=== PATIENT | male | born 1960 | race American Indian/Alaskan Native ===

== ENCOUNTER 2017-05-16 14:29 | Emergency (ER) | payer BC ==
[2017-05-16 14:30] VITALS: BMI 31.5
[2017-05-16] MEDS ORDERED: Aspirin 325 mg EC Tablets PO STA (14:59)
[2017-05-16 15:15] LABS: BASO % 0.5 % (0.0-2.0); EOS # 0.1 K/uL (0.0-0.7); EOS % 2.3 % (0.0-4.0); HEMATOCRIT 44.9 % (35.0-51.0); LYMPH # 2.2 K/uL (1.0-4.3); LYMPH % 49.5 % (20.0-40.0); MEAN CELL VOLUME 89.1 fL (80.0-94.0); MEAN CORPUSCULAR HEMOGLOBIN 30.4 pg (27.0-31.0); MEAN CORPUSCULAR HGB CONC 34.1 g/dL (33.0-37.0); MEAN PLATELET VOLUME 7.7 fL (7.2-11.7); MONO # 0.4 K/uL (0.0-0.8); MONO % 9.5 % (0.0-10.0); NRBC % 0.1 % (0.0-2.0); WHITE BLOOD COUNT 4.4 K/uL (4.8-10.8)
[2017-05-16 15:23] LABS: CHLORIDE 103 mmol/L (98-107); POTASSIUM 3.4 mmol/L (3.6-5.2); SODIUM 142 mmol/L (132-148)
[2017-05-16 15:25] LABS: BILIRUBIN,TOTAL 0.6 mg/dL (0.2-1.3); GFR AFRICAN-AMERICAN > 60
[2017-05-16 15:26] LABS: ALB/GLOB RATIO 1.3 (1.0-2.1); ALKALINE PHOSPHATASE 97 U/L (38-126); ALT/SGPT 37 U/L (21-72); AST/SGOT 31 U/L (17-59); BLOOD UREA NITROGEN 10 mg/dL (9-20); CARBON DIOXIDE 28 mmol/L (22-30); GLUCOSE,RANDOM 106 mg/dL (75-110); TOTAL PROTEIN 7.7 g/dL (6.3-8.3)
[2017-05-16 15:27] LABS: CALCIUM 8.7 mg/dl (8.6-10.4)
--- NOTE | 2017-05-16 15:27 | C.PDOC ---
History Of Present Illness 56 y/o male with Hx of HTN and DM presents to ED with complaints of chest pain and headaches since yesterday. Patient reports HEART being to the right posterior scalp and behind ear along the right side of neck. Pain is rated a 8/10 and described as "tight and pulling" pain that comes and goes. Patient states chest pain began yesterday "over his heart" and feeling a pinching, sharp pain fleeting in nature. Patient denies sob, sweating, nausea or any other complaints at this time. Time Seen by Provider: 05/16/17 14:50 Chief Complaint (Nursing): Chest Pain History Per: Patient History/Exam Limitations: no limitations Onset/Duration Of Symptoms: Days Current Symptoms Are (Timing): Still Present Quality: Tightness, "Pain" Past Medical History Reviewed: Historical Data, Nursing Documentation, Vital Signs Vital Signs: Last Vital Signs Temp 98.4 F 05/16/17 14:38 Pulse 78 05/16/17 18:00 Resp 16 05/16/17 18:00 BP 146/94 H 05/16/17 18:00 Pulse Ox 100 05/16/17 18:00 - Medical History PMH: Back Problems, HTN, Migraine - [facility] Procedures ENDO RECTUM POLYPECTOMY (09/06/04) EXCISE CORD/EPID LES NEC (02/24/03) ING HERNIA REP-GRAFT NOS (02/24/03) INJECT/INFUSE NEC (11/12/04) Family History: States: No Known Family Hx - Social History Hx Alcohol Use: Yes (2 beers) Hx Substance Use: Yes - Immunization History Hx Tetanus Toxoid Vaccination: No Hx Influenza Vaccination: No Hx Pneumococcal Vaccination: No Review Of Systems Except As Marked, All Systems Reviewed And Found Negative. Constitutional: Negative for: Fever, Sweats Cardiovascular: Positive for: Chest Pain Respiratory: Negative for: Shortness of Breath Gastrointestinal: Negative for: Nausea, Vomiting, Diarrhea Musculoskeletal: Negative for: Back Pain Skin: Negative for: Rash Neurological: Positive for: Headache. Negative for: Weakness, Dizziness Physical Exam - Physical Exam Appears: Non-toxic, No Acute Distress Skin: Normal Color, Warm Head: Atraumatic, Normacephalic Eye(s): bilateral: Normal Inspection, PERRL, EOMI Oral Mucosa: Moist Neck: Normal ROM Chest: No Deformity, Other (Reproducible pain to left anterior chest wall) Cardiovascular: Rhythm Regular, No Murmur Respiratory: Normal Breath Sounds, No Rales, No Rhonchi, No Wheezing Gastrointestinal/Abdominal: Soft, No Tenderness, No Guarding, No Rebound Extremity: No Pedal Edema, Capillary Refill (<2 seconds) Neurological/Psych: Oriented x3, Normal Speech, Normal Motor, Normal Sensation, Normal Reflexes ED Course And Treatment - Laboratory Results Result Diagrams: 05/16/17 15:12 05/16/17 15:12 ECG Rhythm: Sinus Rhythm (Normal) ECG Interpretation: Normal Rate From EC (BPM) O2 Sat by Pulse Oximetry: 98 (RA) Pulse Ox Interpretation: Normal Medical Decision Making Medical Decision Making: Patient given Toradol and Cardiac Enzymes Patient will be re-evaluated Disposition Discussed With .: Faizan Woodward Doctor Will See Patient In The: Office Counseled Patient/Family Regarding: Studies Performed, Need For Followup, Rx Given - Disposition Referrals: Faizan Woodward MD [Staff Provider] - Disposition: HOME/ ROUTINE Disposition Time: 19:04 Condition: STABLE Prescriptions: diaZEpam [Valium] 5 mg PO TID #12 tab traMADol/Acetaminophen [Ultracet 37.5/325 mg] 1 tab PO TID PRN #20 tab PRN Reason: pain Instructions: Muscle Spasm (ED), Chest Wall Pain (ED) Forms: General Discharge Instructions - POA Present On Arrival: None - Clinical Impression Clinical Impression: Muscle spasm, Chest wall pain - Scribe Statement The provider has reviewed the documentation as recorded by the Dustin Thomson All medical record entries made by the Scribe were at my direction and personally dictated by me. I have reviewed the chart and agree that the record accurately reflects my personal performance of the history, physical exam, medical decision making, and the department course for this patient. I have also personally directed, reviewed, and agree with the discharge instructions and disposition.
--- NOTE | 2017-05-16 15:36 | RAD ---
PROCEDURE: CHEST RADIOGRAPH, 1 VIEW HISTORY: Chest pain COMPARISON: None available. FINDINGS: LUNGS: The lungs are well inflated and clear. PLEURA: No pneumothorax or pleural fluid seen. CARDIOVASCULAR: Normal. OSSEOUS STRUCTURES: No significant abnormalities. VISUALIZED UPPER ABDOMEN: Normal. OTHER FINDINGS: None. IMPRESSION: No active pulmonary disease.
[2017-05-16 19:00] VITALS: RESP 16
[2017-05-16 19:18] VITALS: BP 122/75; PULSE 81; TEMP 98.9; O2SAT 100
--- NOTE | 2017-05-19 21:32 | CARD ---
APPROVED REPORT EKG Measurement Heart [id number] <Conclusion> Normal sinus rhythm Nonspecific T wave abnormality Abnormal ECG
== END 2017-05-16 19:18 | disposition home or self-care (01) ==
LOC: C.ER 14:29
DX: M62.838 Other muscle spasm (principal); R07.89 Other chest pain; E11.9 Type 2 diabetes mellitus without complications; I10 Essential (primary) hypertension
CPT/HCPCS: 71010; 80053; 83880; 84484; 85025; 93005; 96374; 99285; J1885

== ENCOUNTER 2017-07-23 06:32 | Inpatient (IN) | payer BC ==
[2017-07-23 06:32] VITALS: BMI 31.5
--- NOTE | 2017-07-23 07:52 | C.PDOC ---
History Of Present Illness 56 y/o male, history of HTN and diabetes, presents with dizziness x 2 weeks. Patient describes dizziness as a spinning sensation, worse with head movement, and associated with nausea. Patient states symptoms are intermittent, relieved by rest. Patient reports he saw PMD Dr. Woodward, who started him on Meclizine, which patient states does not help. Also states he felt unstable on his feet walking to the bathroom multiple times last night, having to hold onto the ball. Denies head injury or other trauma, fever, vomiting, numbness, or motor weakness. Time Seen by Provider: 07/23/17 07:15 Chief Complaint (Nursing): Dizziness/Lightheaded History Per: Patient History/Exam Limitations: no limitations Onset/Duration Of Symptoms: Intermittent Episodes (2 weeks) Current Symptoms Are (Timing): Still Present Seizure Or Post-ictal Symptoms: None Fall Associated With With Symptoms: No Recent travel outside of the [place]: No Past Medical History Reviewed: Historical Data, Nursing Documentation, Vital Signs Vital Signs: Last Vital Signs Temp 98.3 F 07/23/17 06:37 Pulse 80 07/23/17 06:37 Resp 18 07/23/17 08:31 BP 163/92 H 07/23/17 08:31 Pulse Ox 96 07/23/17 08:20 - Medical History PMH: Back Problems, HTN, Migraine - [facility] Procedures ENDO RECTUM POLYPECTOMY (09/06/04) EXCISE CORD/EPID LES NEC (02/24/03) ING HERNIA REP-GRAFT NOS (02/24/03) INJECT/INFUSE NEC (11/12/04) Family History: States: Unknown Family Hx - Social History Hx Alcohol Use: Yes (2 beers) Hx Substance Use: No - Immunization History Hx Tetanus Toxoid Vaccination: No Hx Influenza Vaccination: No Hx Pneumococcal Vaccination: No Review Of Systems Except As Marked, All Systems Reviewed And Found Negative. Constitutional: Negative for: Fever, Chills Cardiovascular: Negative for: Chest Pain Respiratory: Negative for: Cough, Shortness of Breath Gastrointestinal: Negative for: Nausea, Vomiting, Abdominal Pain Musculoskeletal: Positive for: Back Pain. Negative for: Neck Pain Skin: Negative for: Rash Neurological: Negative for: Weakness, Numbness, Headache, Dizziness Physical Exam - Physical Exam Additional Physical Exam Comments: Constitutional: No acute distress. Head: Normocephalic. Atraumatic. Eyes: PERRL. ENT: Moist mucous membranes. Neck: Supple. Cardiovascular: Regular rate. Radial pulse 2+ bilaterally. Chest: No tenderness. Respiratory: Clear to auscultation bilaterally. GI: Soft. Nontender. Nondistended. Back: No CVA tenderness. Musculoskeletal: No tenderness or swelling of extremities. Skin: No rash. Neurologic: Alert. (+) Phillip-Hallpike manuever. Finger to nose, heel to parry normal. Cautiously steady gait, increased sway with Romberg. ED Course And Treatment - Laboratory Results Result Diagrams: 07/23/17 07:59 07/23/17 07:59 O2 Sat by Pulse Oximetry: 96 Medical Decision Making Medical Decision Making: Plan: * CT Head * EKG * CxR * Bloodwork * Reassess Progress: EKG impression: NSR 86, no ST elevations or depressions CxR IMPRESSION: No active disease. No interval pathology noted FINDINGS: HEMORRHAGE: No intracranial hemorrhage. BRAIN: No mass effect or edema. No atrophy or chronic microvascular ischemic changes. VENTRICLES: Unremarkable. No hydrocephalus. CALVARIUM: Unremarkable. PARANASAL SINUSES: Ethmoidal sinus mucosal inflammatory changes. No frontal or maxillary or sphenoid similar mucosal inflammatory changes. Some of the ethmoidal air cells are more completely opacified than others right middle segment primarily. MASTOID AIR CELLS: The mastoid air cells are well aerated without effusions. The labyrinthine structures appear grossly unremarkable no cell bowel or pontine angle gross soft tissue pathology or internal auditory canal changes suggested. No middle ear cavity soft tissue for fluid-like density here seen. OTHER FINDINGS: None. IMPRESSION: No intra hemorrhage or mass effect. No mastoid or middle ear cavity gross inflammatory changes appreciated Ethmoidal inflammatory changes as above. No other paranasal sinus significant appearing inflammatory changes suggested Dr. Woodward accepts patient to his service for intractible vertigo. Dr. Rios consulted for neurology. Disposition Discussed With : Faizan Woodward Doctor Will See Patient In The: Hospital - Disposition Disposition: HOSPITALIZED Disposition Time: 09:17 Condition: FAIR Forms: [facility] (German) - Clinical Impression Clinical Impression: Vertigo - Scribe Statement The provider has reviewed the documentation as recorded by the Dustin Shafer Provider Attestation: All medical record entries made by the Dustin were at my direction and personally dictated by me. I have reviewed the chart and agree that the record accurately reflects my personal performance of the history, physical exam, medical decision making, and the department course for this patient. I have also personally directed, reviewed, and agree with the discharge instructions and disposition.
[2017-07-23 08:04] LABS: BASO % 0.8 % (0.0-2.0); EOS # 0.1 K/uL (0.0-0.7); EOS % 1.6 % (0.0-4.0); HEMATOCRIT 45.5 % (35.0-51.0); LYMPH # 1.4 K/uL (1.0-4.3); LYMPH % 40.8 % (20.0-40.0); MEAN CELL VOLUME 88.4 fL (80.0-94.0); MEAN CORPUSCULAR HEMOGLOBIN 30.1 pg (27.0-31.0); MEAN CORPUSCULAR HGB CONC 34.1 g/dL (33.0-37.0); MEAN PLATELET VOLUME 7.5 fL (7.2-11.7); MONO # 0.3 K/uL (0.0-0.8); MONO % 10.1 % (0.0-10.0); NRBC % 0.2 % (0.0-2.0); RED CELL DISTRIBUTION WIDTH 13.4 % (11.5-14.5); WHITE BLOOD COUNT 3.4 K/uL (4.8-10.8)
--- NOTE | 2017-07-23 08:06 | RAD ---
HISTORY: vertigo COMPARISON: 05/16/2017 FINDINGS: LUNGS: No active pulmonary disease. PLEURA: No significant pleural effusion identified, no pneumothorax apparent. CARDIOVASCULAR: Normal. OSSEOUS STRUCTURES: No significant abnormalities. VISUALIZED UPPER ABDOMEN: Normal. OTHER FINDINGS: None. IMPRESSION: No active disease. No interval pathology noted
[2017-07-23 08:11] LABS: CHLORIDE 103 mmol/L (98-107); SODIUM 142 mmol/L (132-148)
[2017-07-23 08:13] LABS: BILIRUBIN,TOTAL 0.7 mg/dL (0.2-1.3); CARBON DIOXIDE 25 mmol/L (22-30); GFR AFRICAN-AMERICAN > 60
[2017-07-23 08:14] LABS: ALB/GLOB RATIO 1.1 (1.0-2.1); ALKALINE PHOSPHATASE 90 U/L (38-126); ALT/SGPT 55 U/L (21-72); AST/SGOT 34 U/L (17-59); BLOOD UREA NITROGEN 11 mg/dL (9-20); CALCIUM 8.8 mg/dl (8.6-10.4); GLUCOSE,RANDOM 129 mg/dL (75-110); TOTAL PROTEIN 7.4 g/dL (6.3-8.3)
--- NOTE | 2017-07-23 09:10 | CT ---
PROCEDURE: CT HEAD WITHOUT CONTRAST. HISTORY: intractible vertigo, occipital headache COMPARISON: None available. TECHNIQUE: Axial computed tomography images were obtained through the head/brain without intravenous contrast. The patient could not lie on his back due to severe dizziness. The study is performed in the decubital positioning with axial reconstructions. Sagittal and coronal reconstructions also obtained Radiation dose: Total exam DLP = 984 mGy-cm. This CT exam was performed using one or more of the following dose reduction techniques: Automated exposure control, adjustment of the mA and/or kV according to patient size, and/or use of iterative reconstruction technique. FINDINGS: HEMORRHAGE: No intracranial hemorrhage. BRAIN: No mass effect or edema. No atrophy or chronic microvascular ischemic changes. VENTRICLES: Unremarkable. No hydrocephalus. CALVARIUM: Unremarkable. PARANASAL SINUSES: Ethmoidal sinus mucosal inflammatory changes. No frontal or maxillary or sphenoid similar mucosal inflammatory changes. Some of the ethmoidal air cells are more completely opacified than others right middle segment primarily. MASTOID AIR CELLS: The mastoid air cells are well aerated without effusions. The labyrinthine structures appear grossly unremarkable no cell bowel or pontine angle gross soft tissue pathology or internal auditory canal changes suggested. No middle ear cavity soft tissue for fluid-like density here seen. OTHER FINDINGS: None. IMPRESSION: No intra hemorrhage or mass effect. No mastoid or middle ear cavity gross inflammatory changes appreciated Ethmoidal inflammatory changes as above. No other paranasal sinus significant appearing inflammatory changes suggested
[2017-07-23] MEDS ORDERED: Gadodiamide 287 mg/ml 20 ml IV ONE (12:32)
[2017-07-23 13:30] LABS: URINE BILIRUBIN NEGATIVE (NEGATIVE); URINE BLOOD NEGATIVE (NEGATIVE); URINE COLOR Yellow (YELLOW); URINE GLUCOSE (UA) NORMAL (Normal); URINE KETONE NEGATIVE (NEGATIVE); URINE LEUKOCYTE ESTERASE NEG Leu/uL (Negative); URINE PROTEIN NEGATIVE (NEGATIVE); URINE UROBILINOGEN NORMAL mg/dL (0.2-1.0)
--- NOTE | 2017-07-23 13:32 | MRI ---
PROCEDURE: MRI BRAIN WITH AND WITHOUT CONTRAST HISTORY: vertigo COMPARISON: Head CT 07/23/2017 TECHNIQUE: Multiplanar, multisequence MR images of the brain were obtained with and without intravenous contrast enhancement. FINDINGS: HEMORRHAGE: None DWI: No evidence of an acute or early subacute infarction. BRAIN PARENCHYMA: Signal intensity of the holliday and white matter structures above below the tentorium appears grossly within normal limits. There is no mass effect. There is no suspicious extra-axial fluid collection identified. Midline brain and appears unremarkable to the craniocervical junction and corpus callosum. ENHANCEMENT: No abnormal intracranial enhancement. VENTRICLES: Unremarkable. No hydrocephalus. CRANIUM: Unremarkable. ORBITS: Grossly unremarkable. PARANASAL SINUSES/MASTOIDS: Limited mucoid material is identified at the inferior portion of the left maxillary sinus. VASCULAR SYSTEM: Skull base flow voids intact. OTHER FINDINGS: None . IMPRESSION: Unremarkable pre and post contrast enhanced MRI of the brain. Incidental left maxillary sinus disease as per above.
--- NOTE | 2017-07-23 14:49 | CON ---
DATE: 07/23/2017 NEUROLOGY CONSULT CHIEF COMPLAINT: Dizziness. HISTORY OF PRESENT ILLNESS: A 56-year-old man with history of hypertension, type 2 diabetes mellitus, and history of migraines. He has been having dizziness in terms of spinning sensation of the room, worsening with head movement and getting up from sitting to a standing position associated with nausea and occasional ringing in the ears, which has been going on for past two weeks, meclizine did not help, and he feels unbalanced and is unstable on his feet while walking to the bathroom and had multiple times last night, and had to hold on to the ball. He denied any falls, any head injury, and focal motor weakness at this time. A CAT scan of the head showed no acute intracranial abnormality. He will be going for underlying MRI. No pronator drift seen under exam. PAST MEDICAL HISTORY: History of hypertension, migraines, and chronic back pain. SOCIAL HISTORY: No illicit drug use, smoking or EtOH abuse. Occasionally, drinks 2 beers. FAMILY HISTORY: Noncontributory. ALLERGIES: NO KNOWN DRUG ALLERGIES. MEDICATIONS: Reviewed via nurse reconciliation sheet. REVIEW OF SYSTEMS: A 14-point review of system is negative except as in the HPI. LABORATORY DATA: Sodium 142, potassium 4, chloride 102, carbon dioxide 25, BUN of 11, creatinine 0.9, and random glucose 129. PHYSICAL EXAMINATION: VITAL SIGNS: Temperature 98.3, pulse rate 80, blood pressure 163/92, respiratory rate of 18, oxygen saturation 96% via room air. GENERAL: The patient is sitting up in bed, in no acute distress. HEENT: Atraumatic and normocephalic. PERRLA. Extraocular muscles are intact. NECK: Supple. No JVD. No adenopathy noted. LUNGS: Clear to auscultation. No adventitious sounds. HEART: S1 and S2, normal rate and rhythm. No murmurs, rubs, or gallops. ABDOMEN: Soft, nontender, and nondistended. Bowel sounds are present. EXTREMITIES: No clubbing. No cyanosis. Peripheral pulses are 2+ felt bilaterally. NEUROLOGIC: The patient is alert and oriented to person, place, month, and year. Speech is fluent without any errors. Cranial nerves II through XII are intact. Motor exam: Moves all extremities equally. Toes are downgoing bilaterally. Sensory exam: Decreased light touch, pinprick, up to calves bilaterally, decreased vibration of the toes. DTRs are 2+ throughout, 1 at the ankles. Coordination: Vovydg-mb-runh intact. Gait is deferred for now. ASSESSMENT AND PLAN: This is a 56-year-old man with history of hypertension, migraines, chronic back pain, diabetes type 2, who had intractable spinning sensation of the room with movement, associated head movement, getting up from the sitting to a standing position with nausea for the past 2 weeks. Neuro exam is nonfocal, but spinning sensation of the room is most likely positional vertigo with possible vestibular neuritis. At this time, I recommend: 1. MRI of the brain to assess for any acute intracranial problems. 2. Continue meclizine 25 mg p.o. t.i.d. and could consider Valium 5 mg x1 dose IV to stop the vertigo. 3. We will recommend vestibular therapy inpatient as well as outpatient and continue current present medical management. Keep blood sugars between 140 to 180 and advised a diabetic diet and avoid sudden movements and reduce salt in his diet. Thank you for this consult. Yousuf Rios MD lDD: 07/23/2017 13:02:08 JUWAN
[2017-07-23 16:59] VITALS: RESP 20
[2017-07-23] MEDS: (Novolin R) Insulin Human Regular 100 units/ml vial SC SCH (18:15)
[2017-07-24] MEDS: (Novolin R) Insulin Human Regular 100 units/ml vial SC SCH ×4 (07:49→21:20)
[2017-07-24] MEDS: Enoxaparin 40 mg Syringe SC SCH ×2 (10:28→10:30)
--- NOTE | 2017-07-24 12:03 | HP ---
CHIEF COMPLAINT: Severe dizziness. HISTORY OF PRESENT ILLNESS: This is a 56-year-old male, well known to me with history of diabetes and hypertension, who is compliant with his diet, medication, and followup. From the last 2 weeks, he has been having dizziness. According to the patient, this is a spinning sensation which is worse with head movement, moving around, and he feels nauseous with it. The symptoms are intermittent. He was seen by me and I started him on meclizine. It did not help. Symptoms got worse to a point that when he is walking, he literally hits the ball from side to side and he has to hold on the ball to go to bathroom and come back to the bed, and he decided to come to the emergency room. He denied any history of head injury, fall, trauma or loss of consciousness. He denies any vomiting. He denies any generalized weakness. He denies any diplopia. He denies any tingling, numbness, paresthesias, and he denies any chest pain or palpitation. He denies history of polyuria, polydipsia, or polyphagia. He denies any history of hematuria or pyuria. There is no history of trauma, fall, loss of consciousness. There is no joint pain, no hip pain. ALLERGIES: UNKNOWN ALLERGIES. CURRENT MEDICATIONS: Metformin. SOCIAL HISTORY: Usually he is a social EtOH user. He denies drinking currently. PHYSICAL EXAMINATION: GENERAL: A middle-aged male who is in distress with dizziness. VITAL SIGNS: Blood pressure 163/92, pulse 80, respiratory rate 18, and temperature 98.3. SKIN: No bruises. No purpura. No petechiae. No ecchymosis. HEENT: Atraumatic and normocephalic. Negative pallor. Negative jaundice. Extraocular movements are intact. NECK: Supple. No JVD. LUNGS: Clear. CARDIOVASCULAR: S1 and S2 regular. ABDOMEN: Soft, nontender. Bowel sounds are positive. EXTREMITIES: No clubbing, cyanosis or edema. CENTRAL NERVOUS SYSTEM: Awake, alert, and oriented x3. Power is 5/5 x4. Deep tendon reflexes are +4/5. Plantars are downgoing. The patient has nystagmus which is horizontal towards the right side, and the patient has gait difficulty. The patient does not have any dysdiadochokinesia. Romberg is negative. ASSESSMENT: 1. Vertigo, most likely it is benign, positional. It is severe, unlikely to be central. 2. Hypertension. 3. Diabetes. PLAN: Admit, detailed order written, seen and examined. Faizan Woodward MD
--- NOTE | 2017-07-24 12:27 | CARD ---
APPROVED REPORT EKG Measurement Heart [id number] <Conclusion> Normal sinus rhythm Nonspecific T wave abnormality Abnormal ECG
--- NOTE | 2017-07-24 17:34 | CP.PCM.PN ---
Subjective - Date & Time of Evaluation Date of Evaluation: 07/24/17 Time of Evaluation: 17:34 - Subjective Subjective: PT SEEN BY CONING MACHINE OPERATOR HE HAD QUESTIONS REGARDING HIS DIAGNOSTICS AND LAB RESULTS. PT STATES HE FEELS MUCH BETTER AND DIZZINESS IS SLOWLY RESOLVING. PT STATES HE HAD TROUBLE WITH PHY THER THIS MORNING, HOWEVER, WITH CONING MACHINE OPERATOR HE WAS OBSERVED WALKING STEADILY IN ROOM. ADMITS TO FEELING THE "ROOM SPINNING" WHEN HE TURNS HIS HEAD TOO QUICKLY. HAD SIMILAR EPISODE SEVERAL YEARS AGO WHILE VISITING FAMILY IN [facility] BUT WAS NEVER EVALUATED FOR IT. PT STATES THE ANTIVERT HAS HELPED WITH HIS SYMPTOMS. ALL DIAGNOSTICS REVIEWED WITH PT. STATES HE WAS NOT SEEN BY NEURO EVEN THOUGH THERE IS DOCUMENTATION IN [facility] BY NEURO CONSULT. ON EXAM: AAOX3, VSS; SPEECH CLEAR; GAIT STEADY; BS CTA B/L; S1S2 REG; NO PEDAL EDEMA; ABD SOFT, NT, ND. PT WILL BE SEEN BY DR. CORRAL DURING ROUNDS THIS EVENING. RX SENT TO PT'S PHARMACY IN [facility] FOR D/C HOME TOMORROW. DISCUSSED PLAN WITH AND OK PER HIM. NO FURTHER ORDERS. Objective - Vital Signs/Intake and Output Vital Signs (last 24 hours): Temp Pulse Resp BP Pulse Ox 98 F 79 20 132/83 97 07/24/17 15:42 07/24/17 15:42 07/24/17 15:42 07/24/17 15:42 07/24/17 15:42 Intake and Output: 07/24/17 07/24/17 06:59 18:59 Intake Total 500 Balance 500 - Medications Medications: Current Medications Chlorthalidone (Hygroton) 25 mg PO DAILY [facility] Enoxaparin Sodium (Lovenox) 40 mg SC DAILY [facility] Last Admin: 07/24/17 10:30 Dose: Not Given Insulin Human Regular (Novolin R) 0 unit SC ACHS [facility] PRN Reason: Protocol Last Admin: 07/24/17 12:00 Dose: Not Given Losartan Potassium (Cozaar) 100 mg PO DAILY [facility] Last Admin: 07/24/17 10:30 Dose: Not Given Meclizine HCl (Antivert) 25 mg PO Q8 [facility] Last Admin: 07/24/17 17:12 Dose: 25 mg Metformin HCl (Glucophage) 500 mg PO BIDBS [facility] Last Admin: 07/24/17 16:24 Dose: 500 mg Pneumococcal Polyvalent Vaccine (Pneumovax 23 Vaccine) 0.5 ml IM .ONCE ONE Stop: 07/25/17 10:01 - Labs Labs: PT 11.2 SECONDS (9.7-12.2) 07/23/17 07:59 INR 1.0 07/23/17 07:59 APTT 29 SECONDS (21-34) 07/23/17 07:59
--- NOTE | 2017-07-25 00:26 | CP.PCM.PN ---
Subjective - Date & Time of Evaluation Date of Evaluation: 07/25/17 - Subjective Subjective: feels less dizzy, no chest pain, no sob Objective - Vital Signs/Intake and Output Vital Signs (last 24 hours): Temp Pulse Resp BP Pulse Ox 98.3 F 78 20 129/77 96 07/24/17 23:15 07/24/17 23:15 07/24/17 23:15 07/24/17 23:15 07/24/17 23:15 Intake and Output: 07/24/17 07/25/17 18:59 06:59 Intake Total 500 300 Balance 500 300 - Medications Medications: Current Medications Chlorthalidone (Hygroton) 25 mg PO DAILY [facility] Last Admin: 07/24/17 21:48 Dose: 25 mg Enoxaparin Sodium (Lovenox) 40 mg SC DAILY [facility] Last Admin: 07/24/17 10:30 Dose: Not Given Insulin Human Regular (Novolin R) [address] [facility] PRN Reason: Protocol Last Admin: 07/24/17 21:20 Dose: Not Given Losartan Potassium (Cozaar) 100 mg PO DAILY [facility] Last Admin: 07/24/17 10:30 Dose: Not Given Meclizine HCl (Antivert) 25 mg PO Q8 [facility] Last Admin: 07/24/17 22:52 Dose: 25 mg Metformin HCl (Glucophage) 500 mg PO BIDBS [facility] Last Admin: 07/24/17 16:24 Dose: 500 mg Pneumococcal Polyvalent Vaccine (Pneumovax 23 Vaccine) 0.5 ml IM .ONCE ONE Stop: 07/25/17 10:01 - Labs Labs: PT 11.2 SECONDS (9.7-12.2) 07/23/17 07:59 INR 1.0 07/23/17 07:59 APTT 29 SECONDS (21-34) 07/23/17 07:59 - Constitutional Appears: Non-toxic, No Acute Distress - Head Exam Head Exam: ATRAUMATIC, NORMAL INSPECTION, NORMOCEPHALIC - Eye Exam Eye Exam: EOMI, Normal appearance Pupil Exam: NORMAL ACCOMODATION - ENT Exam ENT Exam: Mucous Membranes Moist, Normal Exam - Neck Exam Neck Exam: Normal Inspection - Respiratory Exam Respiratory Exam: Clear to Ausculation Bilateral, NORMAL BREATHING PATTERN - Cardiovascular Exam Cardiovascular Exam: REGULAR RHYTHM, +S1, +S2 - GI/Abdominal Exam GI & Abdominal Exam: Soft, Normal Bowel Sounds - Rectal Exam Rectal Exam: NORMAL INSPECTION - Extremities Exam Extremities Exam: Full ROM, Normal Capillary Refill, Normal Inspection - Neurological Exam Neurological Exam: Alert, Awake, CN II-XII Intact, Normal Gait, Oriented x3 Neuro motor strength exam: Left Upper Extremity: 5, Right Upper Extremity: 5, Left Lower Extremity: 5, Right Lower Extremity: 5 Assessment and Plan (1) Diabetes mellitus Status: Chronic (2) Vertigo Assessment & Plan: on meclizine Status: Acute (3) Hypertension Status: Chronic
[2017-07-25] MEDS: (Novolin R) Insulin Human Regular 100 units/ml vial SC SCH ×2 (07:30→12:10)
[2017-07-25 08:06] VITALS: O2SAT 97
[2017-07-25] MEDS: Enoxaparin 40 mg Syringe SC SCH (09:47)
[2017-07-25] MEDS ORDERED: Pneumococcal 23-Valent Vaccine IM ONE (10:00)
--- NOTE | 2017-07-25 14:18 | CP.PCM.PN ---
Subjective - Date & Time of Evaluation Date of Evaluation: 07/25/17 Time of Evaluation: 14:15 - Subjective Subjective: PT SEEN AND EXAMINED TODAY, DENIES ANY CP, SOB, PALPITATION, RESP EASY AND UNLABORED. NAD. Objective - Vital Signs/Intake and Output Vital Signs (last 24 hours): Temp Pulse Resp BP Pulse Ox 98.1 F 76 20 166/89 H 97 07/25/17 08:02 07/25/17 08:02 07/25/17 08:02 07/25/17 08:02 07/25/17 08:02 Intake and Output: 07/25/17 07/25/17 06:59 18:59 Intake Total 300 Balance 300 - Medications Medications: Current Medications Chlorthalidone (Hygroton) 25 mg PO DAILY [facility] Last Admin: 07/25/17 09:46 Dose: 25 mg Enoxaparin Sodium (Lovenox) 40 mg SC DAILY [facility] Last Admin: 07/25/17 09:47 Dose: Not Given Insulin Human Regular (Novolin R) 0 unit SC ACHS [facility] PRN Reason: Protocol Last Admin: 07/25/17 12:10 Dose: Not Given Losartan Potassium (Cozaar) 100 mg PO DAILY [facility] Last Admin: 07/25/17 09:46 Dose: 100 mg Meclizine HCl (Antivert) 25 mg PO Q8 [facility] Last Admin: 07/25/17 09:50 Dose: 25 mg Metformin HCl (Glucophage) 500 mg PO BIDBS [facility] Last Admin: 07/25/17 09:46 Dose: 500 mg - Labs Labs: PT 11.2 SECONDS (9.7-12.2) 07/23/17 07:59 INR 1.0 07/23/17 07:59 APTT 29 SECONDS (21-34) 07/23/17 07:59 Assessment and Plan - Assessment and Plan (Free Text) Plan: 56 Y/O MALE WITH PMHX HTN, DM, * ADMITTED FOR DIZZINESS FOR 2 WEEKS * PT AAOX3, NO NEURO DEFICIT * CT HEAD AND MRI BRAIN- NO BLEED OR MASS * NEURO CONSULTED- CLEARED FOR D/C * RX FOR MECLIZINE PRN * VESTIBULAR THERAPY OUTPT * F/U W/PMD AND NEURO * RETURN TO ED IF ANY WORSENING S/S * AGREE, VERBALIZE UNDERSTANDING
--- NOTE | 2017-07-25 15:05 | CP.PCM.DIS ---
Provider - Provider Date of Admission: 07/24/17 14:43 Attending physician: Faizan Woodward MD Diagnosis - Discharge Diagnosis (1) Diabetes mellitus Status: Chronic (2) Vertigo Status: Acute (3) Hypertension Status: Chronic Hospital Course - Lab Results Lab Results: Most Recent Lab Values WBC 3.4 K/uL (4.8-10.8) L 07/23/17 07:59 RBC 5.15 Mil/uL (4.40-5.90) 07/23/17 07:59 Hgb 15.5 g/dL (12.0-18.0) 07/23/17 07:59 Hct 45.5 % (35.0-51.0) 07/23/17 07:59 MCV 88.4 fL (80.0-94.0) 07/23/17 07:59 MCH 30.1 pg (27.0-31.0) 07/23/17 07:59 MCHC 34.1 g/dL (33.0-37.0) 07/23/17 07:59 RDW 13.4 % (11.5-14.5) 07/23/17 07:59 Plt Count 199 K/uL (130-400) 07/23/17 07:59 MPV 7.5 fL (7.2-11.7) 07/23/17 07:59 Neut % (Auto) 46.7 % (50.0-75.0) L 07/23/17 07:59 Lymph % (Auto) 40.8 % (20.0-40.0) H 07/23/17 07:59 [place] % (Auto) 10.1 % (0.0-10.0) H 07/23/17 07:59 Eos % (Auto) 1.6 % (0.0-4.0) 07/23/17 07:59 Baso % (Auto) 0.8 % (0.0-2.0) 07/23/17 07:59 Neut # 1.6 K/uL (1.8-7.0) L 07/23/17 07:59 Lymph # 1.4 K/uL (1.0-4.3) 07/23/17 07:59 [place] # 0.3 K/uL (0.0-0.8) 07/23/17 07:59 Eos # 0.1 K/uL (0.0-0.7) 07/23/17 07:59 Baso # 0.0 K/uL (0.0-0.2) 07/23/17 07:59 PT 11.2 SECONDS (9.7-12.2) 07/23/17 07:59 INR 1.0 07/23/17 07:59 APTT 29 SECONDS (21-34) 07/23/17 07:59 Sodium 142 mmol/L (132-148) 07/23/17 07:59 Potassium 4.0 mmol/L (3.6-5.2) 07/23/17 07:59 Chloride 103 mmol/L (98-107) 07/23/17 07:59 Carbon Dioxide 25 mmol/L (22-30) 07/23/17 07:59 Anion Gap 19 (10-20) 07/23/17 07:59 BUN 11 mg/dL (9-20) 07/23/17 07:59 Creatinine 0.9 MG/DL (0.8-1.5) 07/23/17 07:59 Est GFR ( Amer) > 60 07/23/17 07:59 Est GFR (Non-Af Amer) > 60 07/23/17 07:59 POC Glucose (mg/dL) 88 mg/dL (65-110) 07/25/17 11:34 Random Glucose 129 mg/dL (75-110) H 07/23/17 07:59 Calcium 8.8 mg/dl (8.6-10.4) 07/23/17 07:59 Total Bilirubin 0.7 mg/dL (0.2-1.3) 07/23/17 07:59 AST 34 U/L (17-59) 07/23/17 07:59 ALT 55 U/L (21-72) 07/23/17 07:59 Alkaline Phosphatase 90 U/L (38-126) 07/23/17 07:59 Troponin I 0.0160 ng/mL (0.00-0.120) 07/23/17 07:59 Total Protein 7.4 g/dL (6.3-8.3) 07/23/17 07:59 Albumin 3.9 g/dL (3.5-5.0) 07/23/17 07:59 Globulin 3.5 gm/dL (2.2-3.9) 07/23/17 07:59 Albumin/Globulin Ratio 1.1 (1.0-2.1) 07/23/17 07:59 Urine Color Yellow (YELLOW) 07/23/17 13:22 Urine Clarity Clear (Clear) 07/23/17 13:22 Urine pH 7.0 (5.0-8.0) 07/23/17 13:22 Ur Specific [place] 1.012 (1.003-1.030) 07/23/17 13:22 Urine Protein Negative mg/dL (NEGATIVE) 07/23/17 13:22 Urine Glucose (UA) Normal mg/dL (Normal) 07/23/17 13:22 Urine Ketones Negative mg/dL (NEGATIVE) 07/23/17 13:22 Urine Blood Negative (NEGATIVE) 07/23/17 13:22 Urine Nitrate Negative (NEGATIVE) 07/23/17 13:22 Urine Bilirubin Negative (NEGATIVE) 07/23/17 13:22 Urine Urobilinogen Normal mg/dL (0.2-1.0) 07/23/17 13:22 Ur Leukocyte Esterase Neg [place]/uL (Negative) 07/23/17 13:22 Discharge Exam - Head Exam Head Exam: ATRAUMATIC, NORMAL INSPECTION, NORMOCEPHALIC Discharge Plan - Discharge Medications Prescriptions: RX: Valsartan [Diovan] 160 mg PO DAILY #30 tab RX: metFORMIN [glucOPHAGE] 500 mg PO BIDBS #60 tab RX: Chlorthalidone [Hygroton] 25 mg PO DAILY #30 tab RX: Meclizine [Meclizine*] 25 mg PO Q8 #90 tab - Follow Up Plan Condition: FAIR Disposition: HOME/ ROUTINE Additional Instructions: FOLLOW UP WITH DR. WOODWARD IN THE OFFICE WITHIN 1 WEEK---CALL FOR APPT TIME. FOLLOW UP WITH DR. HODGES THE NEUROLOGIST WITHIN 2 WEEKS. TAKE ALL HOME MEDICATIONS USUAL. REFILLS HAVE BEEN SENT TO YOUR PHARMACY. NEW MEDICATION (PRESCRIPTION SENT TO YOUR PHARMACY): MECLIZINE (ANTIVERT) FOR THE VERTIGO/DIZZINESS. TAKE ONE TABLET EVERY 8 HOURS; ONCE YOU FEEL BETTER TAKE ON AN NEEDED BASIS. AVOID ANY SUDDEN MOVEMENT, REDUCE SALT IN DIET ON THURSDAY CONTACT YOUR INSURANCE COMPANY TO DISCUSS WHERE THEY WILL COVER "VESTIBULAR THERAPY" IN THE AREA. THIS IS THERAPY FOR YOUR DIZZINESS. STAY HYDRATED AND TAKE ALL OF YOUR MEDICINE PRESCRIBED TO HELP WITH THE DIZZINESS. FOR ANY OTHER CONCERNS, CONTACT DR. WOODWARD'S OFFICE. Referrals: Yousuf Hodges MD [Staff Provider] - Earl Hodges MD [Staff Provider] - Faizan Woodward MD [Staff Provider] -
[2017-07-25 15:57] VITALS: BP 141/94; PULSE 82; TEMP 98.2
== END 2017-07-25 16:09 | disposition home or self-care (01) | DRG 149 ==
LOC: C.ER 06:32 → C.9E 09:14 → C.5T 11:55 → OBSVTOIN 07-24 14:43
PROVIDERS: ADMIT Internal Medicine; ATTEND Internal Medicine
DX: H81.10 Benign paroxysmal vertigo, unspecified ear (principal); I10 Essential (primary) hypertension; M54.9 Dorsalgia, unspecified; G89.29 Other chronic pain; G43.909 Migraine, unspecified, not intractable, without status migrainosus; E11.9 Type 2 diabetes mellitus without complications

== ENCOUNTER 2017-08-09 15:05 | Emergency (ER) | payer BC ==
[2017-08-09 15:05] VITALS: BMI 31.5
[2017-08-09 15:33] VITALS: RESP 18; O2SAT 99
[2017-08-09] MEDS ORDERED: Naproxen 550 mg Tab PO STA (15:50)
--- NOTE | 2017-08-09 15:56 | C.PDOC ---
History Of Present Illness Patient is a 56 y/o male who presents to the ED with a complaint of left arm pain for one week that radiates to his left upper back; patient admits to onset of numbness to L arm this morning at 8:00am. Patient was referred to ED by PCP on 08/07/17 for xray; notes he was given anti-inflammatory medication to no relief. Denies any known trauma, chest pain, SOB, headache, or dizziness. Time Seen by Provider: 08/09/17 15:29 Chief Complaint (Nursing): Upper Extremity Problem/Injury History Per: Patient History/Exam Limitations: no limitations Onset/Duration Of Symptoms: Hrs (onset of numbness this morning. ), Days (L shoulder/upper back pain x1 week. ) Current Symptoms Are (Timing): Still Present Recent travel outside of the [place]: No Past Medical History Reviewed: Historical Data, Nursing Documentation, Vital Signs Vital Signs: Last Vital Signs Temp 99 F 08/09/17 18:59 Pulse 94 H 08/09/17 18:59 Resp 18 08/09/17 18:59 BP 165/91 H 08/09/17 18:59 Pulse Ox 99 08/09/17 18:59 - Medical History PMH: Arthritis ("left hip"), Back Problems, HTN, Migraine Other Surgeries: rectum polypectomy. - [facility] Procedures ENDO RECTUM POLYPECTOMY (09/06/04) EXCISE CORD/EPID LES NEC (02/24/03) ING HERNIA REP-GRAFT NOS (02/24/03) INJECT/INFUSE NEC (11/12/04) Family History: States: Unknown Family Hx - Social History Hx Alcohol Use: Yes (socially) Hx Substance Use: No - Immunization History Hx Tetanus Toxoid Vaccination: No Hx Influenza Vaccination: No Hx Pneumococcal Vaccination: No Review Of Systems Except As Marked, All Systems Reviewed And Found Negative. Musculoskeletal: Positive for: Shoulder Pain (L), Back Pain (upper L) Neurological: Positive for: Numbness (L arm ) Physical Exam - Physical Exam Appears: Well, Non-toxic Skin: Normal Color, Warm, Dry Head: Atraumatic, Normacephalic Oral Mucosa: Moist Chest: Symmetrical Cardiovascular: Rhythm Regular, No Murmur Respiratory: Normal Breath Sounds, No Rales, No Rhonchi, No Wheezing Gastrointestinal/Abdominal: Soft, No Tenderness Back: Other (upper back tenderness. ) Extremity: Tenderness (L shoulder. ) Neurological/Psych: Oriented x3, Normal Speech, Normal Cognition ED Course And Treatment - Laboratory Results Result Diagrams: 08/09/17 16:54 08/09/17 16:54 O2 Sat by Pulse Oximetry: 99 (room air. ) Pulse Ox Interpretation: Normal Medical Decision Making Medical Decision Making: suspected msk pain, peripheral radulopathy Plan: Left shoulder RAD ordered; Anaprox DS administered. ekg nsr 98 nonspcific t wave chagne no interval change upon attempted d/c pt became concerned "taht he was having a stroke and mi" requested blood work and ct". advised both dignaosis are doubtful. proceeded with imaging and blood work at pt request. Disposition - Disposition Referrals: Mitchel Dewitt MD [Staff Provider] - [facility] [Outside] [facility] [Outside] Disposition: HOME/ ROUTINE Disposition Time: 16:22 Condition: STABLE Additional Instructions: plesae follow up with your doctor/ you may need further imaging and workup. please see specialists. Prescriptions: Naproxen [Naprosyn] 500 mg PO BID PRN #14 tablet PRN Reason: Pain, Mild (1-3) Instructions: Shoulder Sprain (ED), Paresthesia (ED) Forms: [facility] (Belizean) - Clinical Impression Clinical Impression: Shoulder sprain, Paresthesia - Scribe Statement The provider has reviewed the documentation as recorded by the Scribe Kate Wayne All medical record entries made by the Scribe were at my direction and personally dictated by me. I have reviewed the chart and agree that the record accurately reflects my personal performance of the history, physical exam, medical decision making, and the department course for this patient. I have also personally directed, reviewed, and agree with the discharge instructions and disposition.
[2017-08-09] MEDS ORDERED: Naproxen 550 mg Tab PO ONE (16:00)
[2017-08-09 16:59] LABS: BASO % 0.4 % (0.0-2.0); EOS # 0.1 K/uL (0.0-0.7); EOS % 2.7 % (0.0-4.0); HEMATOCRIT 44.3 % (35.0-51.0); LYMPH % 56.1 % (20.0-40.0); MEAN CORPUSCULAR HEMOGLOBIN 30.5 pg (27.0-31.0); MEAN CORPUSCULAR HGB CONC 34.7 g/dL (33.0-37.0); MEAN PLATELET VOLUME 7.6 fL (7.2-11.7); MONO # 0.4 K/uL (0.0-0.8); MONO % 9.9 % (0.0-10.0); NRBC % 0.1 % (0.0-2.0); WHITE BLOOD COUNT 3.5 K/uL (4.8-10.8)
[2017-08-09 17:05] LABS: RBC URINE < 1 /hpf (0-3); URINE BILIRUBIN NEGATIVE (NEGATIVE); URINE BLOOD NEGATIVE (NEGATIVE); URINE COLOR Straw (YELLOW); URINE GLUCOSE (UA) NORMAL (Normal); URINE KETONE NEGATIVE (NEGATIVE); URINE LEUKOCYTE ESTERASE NEG Leu/uL (Negative); URINE PROTEIN NEGATIVE (NEGATIVE); URINE UROBILINOGEN NORMAL mg/dL (0.2-1.0)
[2017-08-09 17:08] LABS: CHLORIDE 106 mmol/L (98-107); POTASSIUM 3.5 mmol/L (3.6-5.2); SODIUM 142 mmol/L (132-148)
[2017-08-09 17:10] LABS: AST/SGOT 29 U/L (17-59); BILIRUBIN,TOTAL 0.5 mg/dL (0.2-1.3); CARBON DIOXIDE 24 mmol/L (22-30); GFR AFRICAN-AMERICAN > 60
[2017-08-09 17:11] LABS: ALB/GLOB RATIO 1.3 (1.0-2.1); ALKALINE PHOSPHATASE 112 U/L (38-126); ALT/SGPT 51 U/L (21-72); BLOOD UREA NITROGEN 11 mg/dL (9-20); CALCIUM 8.1 mg/dl (8.6-10.4); GLUCOSE,RANDOM 123 mg/dL (75-110); TOTAL PROTEIN 7.3 g/dL (6.3-8.3)
--- NOTE | 2017-08-09 17:22 | RAD ---
PROCEDURE: Radiographs of the Left Shoulder HISTORY: pain COMPARISON: No prior. FINDINGS: BONES: Normal. No fracture. JOINTS: Preserved glenohumeral relationship, acromioclavicular degenerative change: Mild. SOFT TISSUES: Normal. OTHER FINDINGS: None. IMPRESSION: No acute findings related to/accounting for the clinical presentation. Concordant results with the preliminary interpretation rendered by the emergency department physician procedure.
[2017-08-09 19:00] VITALS: BP 165/91; PULSE 94; TEMP 99
--- NOTE | 2017-08-10 08:10 | CT ---
PROCEDURE: CT HEAD WITHOUT CONTRAST. HISTORY: numbness COMPARISON: Head CT and brain MRI, both dated 07/23/2017. TECHNIQUE: Axial computed tomography images were obtained through the head/brain without intravenous contrast. Radiation dose: Total exam DLP = 817 mGy-cm. This CT exam was performed using one or more of the following dose reduction techniques: Automated exposure control, adjustment of the mA and/or kV according to patient size, and/or use of iterative reconstruction technique. FINDINGS: HEMORRHAGE: No intracranial hemorrhage. BRAIN: No mass effect or edema. No suspicious parenchymal lucency is appreciated and there is no suspicious extra-axial fluid collection identified throughout. . VENTRICLES: Unremarkable. No hydrocephalus. CALVARIUM: Unremarkable. PARANASAL SINUSES: Ethmoid sinusitis again appreciated bilaterally and there is a question of potential bilateral exophthalmos. MASTOID AIR CELLS: Unremarkable as visualized. No inflammatory changes. OTHER FINDINGS: None. IMPRESSION: Stable unremarkable unenhanced head CT as discussed above. Bilateral exophthalmos is questioned. Limited bilateral ethmoid sinus disease again seen greater the right than left sides.
--- NOTE | 2017-08-10 12:25 | CARD ---
APPROVED REPORT EKG Measurement Heart [id number] <Conclusion> Normal sinus rhythm T wave abnormality, consider inferior ischemia Abnormal ECG
== END 2017-08-09 18:59 | disposition home or self-care (01) ==
LOC: C.ER 15:05
DX: S43.402A Unspecified sprain of left shoulder joint, initial encounter (principal); X58.XXXA Exposure to other specified factors, initial encounter; R20.2 Paresthesia of skin
CPT/HCPCS: 70450; 73030; 80053; 81001; 84484; 85025; 85610; 85730; 93005; 96372; 99284; J1885

== ENCOUNTER 2018-02-24 13:08 | Emergency (ER) | payer BC, OTHER ==
[2018-02-24 13:22] VITALS: BMI 31.6
[2018-02-24 13:39] VITALS: RESP 18; TEMP 98.1; O2SAT 97
[2018-02-24] MEDS ORDERED: Sodium Chloride 0.9% 1,000 ML IV ONE (13:54)
[2018-02-24] MEDS ORDERED: Morphine 4 MG/ML VIAL ONE ×2 (14:18→14:49)
--- NOTE | 2018-02-24 14:21 | RAD ---
PROCEDURE: Right Hand Radiographs. HISTORY: fingers injury, van door slammed at work today. COMPARISON: None. FINDINGS: BONES: Comminuted fracture of the tuft of the distal phalanx right ring finger is appreciated without dislocation. Local soft tissue edema is identified. Soft tissue and bony detail is obscured by local bandage material. No additional fracture identified throughout the right hand otherwise. JOINTS: Normal. No osteoarthritic changes. SOFT TISSUES: Normal. OTHER FINDINGS: None. IMPRESSION: Comminuted fracture of the tuft of the distal phalanx right ring finger without dislocation.
[2018-02-24 14:43] LABS: BASO # 0.1 K/uL (0.0-0.2); HEMOGLOBIN 16.5 g/dL (12.0-18.0); MEAN CORPUSCULAR HEMOGLOBIN 30.5 pg (27.0-31.0); MEAN CORPUSCULAR HGB CONC 34.7 g/dL (33.0-37.0); MONO # 0.4 K/uL (0.0-0.8); NEUT % 64.4 % (50.0-75.0)
[2018-02-24 14:53] LABS: BASO % 0.8 % (0.0-2.0); EOS % 0.5 % (0.0-4.0); LYMPH # 1.9 K/uL (1.0-4.3); LYMPH % 27.8 % (20.0-40.0); MEAN CELL VOLUME 87.9 fL (80.0-94.0); MEAN PLATELET VOLUME 8.9 fL (7.2-11.7); MONO % 6.5 % (0.0-10.0); NEUT # 4.3 K/uL (1.8-7.0); NRBC % 0.4 % (0.0-2.0); RBC 5.4 Mil/uL (4.40-5.90); RED CELL DISTRIBUTION WIDTH 13.2 % (11.5-14.5)
[2018-02-24] MEDS ORDERED: Lidocaine 2% w Epi 1:100,000 Inj IJ STA (14:54)
[2018-02-24 14:57] LABS: WHITE BLOOD COUNT 6.7 K/uL (4.8-10.8)
[2018-02-24 15:04] LABS: GFR AFRICAN-AMERICAN > 60; GFR NON-AFRICAN AMERICAN > 60
[2018-02-24 15:08] LABS: ALBUMIN 4.5 g/dL (3.5-5.0); ALT/SGPT 30 U/L (21-72); AST/SGOT 48 U/L (17-59); BLOOD UREA NITROGEN 9 mg/dL (9-20)
[2018-02-24 15:42] LABS: INR 0.9; PROTHROMBIN TIME 10.5 SECONDS (9.7-12.2)
[2018-02-24] MEDS ORDERED: Lidocaine 2% MPF (5 ml) Inj ONE (17:36)
[2018-02-24] MEDS ORDERED: Lidocaine 2% w Epi 1:100,000 Inj IJ ONE (18:00)
--- NOTE | 2018-02-24 19:28 | C.PDOC ---
History Of Present Illness Pt injured his right 4th and 5th fingers at work today. He states the van door accidentally closed on them. 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) Current Symptoms Are (Timing): Still Present Quality: "Pain" Severity: Severe Additional History Per: Prior Records Past Medical History Reviewed: Historical Data, Nursing Documentation, Vital Signs Vital Signs: Last Vital Signs Temp 98.1 F 02/24/18 15:37 Pulse 89 02/24/18 18:44 Resp 18 02/24/18 18:44 BP 158/104 H 02/24/18 18:44 Pulse Ox 97 02/24/18 19:32 - Medical History PMH: Arthritis ("left hip"), Back Problems, HTN, Migraine - [facility] Procedures ENDO RECTUM POLYPECTOMY (09/06/04) EXCISE CORD/EPID LES NEC (02/24/03) ING HERNIA REP-GRAFT NOS (02/24/03) INJECT/INFUSE NEC (11/12/04) Family History: States: Unknown Family Hx - Social History Hx Alcohol Use: Yes (socially) Hx Substance Use: No - Immunization History Hx Tetanus Toxoid Vaccination: No Hx Influenza Vaccination: No Hx Pneumococcal Vaccination: No Review Of Systems Except As Marked, All Systems Reviewed And Found Negative. Constitutional: Negative for: Fever Cardiovascular: Negative for: Chest Pain Respiratory: Negative for: Shortness of Breath Gastrointestinal: Negative for: Vomiting, Abdominal Pain Musculoskeletal: Negative for: Neck Pain Neurological: Negative for: Weakness Physical Exam - Physical Exam Appears: Non-toxic, No Acute Distress Skin: Normal Color, Warm, Dry Head: Atraumatic, Normacephalic Eye(s): bilateral: PERRL, EOMI Neck: Normal ROM, Supple Cardiovascular: Rhythm Regular Respiratory: Normal Breath Sounds, No Accessory Muscle Use Gastrointestinal/Abdominal: Soft, No Tenderness Extremity: Other (Partial amputation of distal phalanx of right ring finger. Small open wound of right 5th finger. No active bleeding. ) Pulses: Right Radial: Normal Neurological/Psych: Oriented x3 ED Course And Treatment - Laboratory Results Result Diagrams: 02/24/18 14:39 02/24/18 14:39 Lab Interpretation: No Acute Changes O2 Sat by Pulse Oximetry: 97 Pulse Ox Interpretation: Normal - Other Rad Right hand x-rays X-Ray: Viewed By Me, Read By Radiologist Interpretation: IMPRESSION: Comminuted fracture of the tuft of the distal phalanx right ring finger without dislocation. - Physician Consult Information Physician Contacted: Wilbur Amanda (Hand surg.) Outcome Of Conversation: He evaluated and repaired the wounds in the ED. He wants pt to be discharged home on and he will see pt in his office on Thursday. Disposition Counseled Patient/Family Regarding: Studies Performed, Diagnosis, Need For Followup, Rx Given - Disposition Referrals: Wilbur Amanda MD [Staff Provider] - Faizan Woodward MD [Staff Provider] - Disposition: HOME/ ROUTINE Disposition Time: 19:33 Condition: IMPROVED Additional Instructions: Keep your wounds clean and dressed. Follow up with the Hand specialist in 5 days as instructed. Return to the ER if you develop fever, redness, swelling, pus drainage, worsening of symptoms or if you have any other concerns. Prescriptions: Cephalexin [cephalexin] 500 mg PO TID #15 cap Hydrocodone/Acetaminophen [Hydrocodone-Acetamin 5-300 mg] 1 - 2 tab PO Q6 PRN # 20 tablet PRN Reason: Pain, Moderate (4-7) Instructions: Amputation of the Finger or Fingertip (DC) Forms: [facility] (Nepalese) - Clinical Impression Clinical Impression: Crushing injury of finger of right hand, Avulsion of skin of finger
[2018-02-25 11:10] VITALS: BP 158/104; PULSE 89
--- NOTE | 2018-03-05 01:07 | OP ---
PROCEDURE DATE: 02/24/2018 LOCATION: [facility]. PREOPERATIVE DIAGNOSES: 1. Open wound, right hand, ICD-10, S61.401A. 2. Open wound, right finger with damage to nail, ICD-10, S61.304A. 3. Fracture of distal phalanx, right finger, ICD-10, S62.634A. POSTOPERATIVE DIAGNOSES: 1. Open wound right hand, ICD-10, S61.401A. 2. Open wound, right finger with damage to nail, ICD-10, S61.304A. 3. Fracture of distal phalanx right finger, ICD-10, S62.634A. PROCEDURES: 1. Repair of open wound, left index finger, CPT 85523. 2. Treatment of distal phalangeal fracture, CPT 62746. SURGEON: Wilbur Amanda MD CLINICAL NOTE: This 57-year-old male presents to the [facility] Emergency Room after sustaining an open wound to his right hand ring finger while at work. On the dorsal surface at the level of the distal phalangeal joint, there was a large flap laceration which was almost circumferential and a near complete amputation of the finger. This involved the nail and nail bed; however, it appeared that there was sufficient blood supply through the flap to allow repair of the wound. X-rays revealed a comminuted fracture of distal phalanx. Since the nature of the injury was outside the competence of the emergency department, the plastic surgery consultation was called. The nature of the injury and proposed repair were outlined to the patient and an informed consent outlining potential risks of failure and complications relating to the proposed surgical repair was obtained prior to scheduling repair of these injuries. No guarantee of outcome was provided to the patient. DESCRIPTION OF PROCEDURE: The patient was commenced on intravenous antibiotics prior to surgery and infiltrate of local anesthesia was obtained using 5 mL of 1% lidocaine with epinephrine mixed with an equal amount of 0.5% Marcaine. After an adequate level of anesthesia was obtained, the open wounds were thoroughly irrigated and marginal areas of skin debrided as necessary. The finger's skin wound was then repaired in layers after placing the joints in hyperextension. This had the beneficial effect of reducing the distal phalangeal fracture. The nail which had been evolved from the subungual floor was replaced into the subungual area and sutured into position. There was also a grinding type of injury to the nail and nail bed and this was pointed out to the patient and if that could not be repaired, he would likely have a permanent to it. The wounds were then dressed in the usual manner and a splint applied keeping the finger in extension and tension off . The patient was given discharge instructions to follow up in the office within a week and not to remove the dressing and splint. He was also given a prescription for Percocet for pain relief and Keflex for antibiotic coverage. Estimated blood loss was 5 mL. Wilbur Amanda MD
== END 2018-02-24 20:03 | disposition home or self-care (01) ==
LOC: C.ER 13:08
DX: S61.304A Unspecified open wound of right ring finger with damage to nail, initial encounter (principal); S62.634A Displaced fracture of distal phalanx of right ring finger, initial encounter for closed fracture; W23.0XXA Caught, crushed, jammed, or pinched between moving objects, initial encounter; Y92.89 Other specified places as the place of occurrence of the external cause; Y99.8 Other external cause status
CPT/HCPCS: 13132; 26765; 73130; 80053; 85025; 85610; 85730; 96361; 96374; 99285; J2270; J7040